=== PATIENT | female | born 1985 | race African-American/Black ===

== ENCOUNTER 2016-09-30 21:29 | Emergency (ER) | payer MEDICAID ==
[~2016-09-30] VITALS: Ht 177.8 cm; Wt 98.0 kg
[2016-09-30 21:43] VITALS: BP 132/92
[2016-10-01] MEDS ORDERED: BACITRACIN ZINC OINT UDPKT TOP ONE (02:15)
== END 2016-10-01 02:55 | disposition home or self-care (01) ==
LOC: ER 21:29
DX: L60.0 Ingrowing nail (principal); L02.31 Cutaneous abscess of buttock; L03.317 Cellulitis of buttock; Z88.0 Allergy status to penicillin; Z91.011 Allergy to milk products
CPT/HCPCS: 81025; 99283

== ENCOUNTER 2017-01-26 22:39 | Emergency (ER) | payer MEDICAID, OTHER ==
[~2017-01-26] VITALS: Ht 180.3 cm; Wt 126.0 kg
[2017-01-26] MEDS ORDERED: SODIUM CHLORIDE 0.9% 1,000 ML IV ONE (23:45)
[2017-01-26 23:54] VITALS: BP 109/55
[2017-01-27 00:05] LABS: BASOPHILS % 0.7 % (0.0-2.0); EOSINOPHILS % 1.7 % (0.0-5.0); HEMATOCRIT. 38.4 % (36.0-48.0); HEMOGLOBIN. 12.8 g/dL (12.0-16.0); LYMPHOCYTES % 33.9 % (20.0-50.0); MEAN CORPUSCULAR HEMOGLOBIN 24.2 pg (28.0-32.0); MEAN CORPUSCULAR VOLUME 72.8 fL (81.0-99.0); MEAN PLATELET VOLUME 8.1 fl (7.4-10.4); MONOCYTES % 9.4 % (2.0-8.0); NEUTROPHILS % 54.3 % (40.0-76.0); PLATELET 228 x1000/uL (130-400); RED BLOOD CELL COUNT 5.27 mill/uL (4.2-5.4); RED CELL DISTRIBUTION WIDTH 14.1 % (11.6-14.6)
[2017-01-27 00:11] LABS: CHLORIDE 104 mEq/L (98-107)
[2017-01-27 00:17] LABS: CLARITY URINE CLOUDY (CLEAR); COLOR URINE YELLOW (YELLOW); GLUCOSE URINE NEGATIVE (NEGATIVE); KETONES URINE TRACE (NEGATIVE); LEUKOCYTE ESTERASE URINE 1+ (NEGATIVE); NITRITE URINE NEGATIVE (NEGATIVE); OCCULT BLOOD URINE 1+ (NEGATIVE); PH URINE 5.5 (4.5-8.0); PROTEIN URINE NEGATIVE (NEGATIVE); SPECIFIC GRAVITY URINE 1.034 (1.005-1.030)
[2017-01-27 00:27] LABS: CARBON DIOXIDE 23 mEq/L (21-32)
[2017-01-27 00:35] LABS: B-HCG QUANTITATIVE 136340 mIU/mL (<3)
== END 2017-01-27 01:15 | disposition home or self-care (01) ==
LOC: ER 22:39
DX: O20.0 Threatened abortion (principal); O21.0 Mild hyperemesis gravidarum; Z3A.09 9 weeks gestation of pregnancy; O99.511 Diseases of the respiratory system complicating pregnancy, first trimester; J45.909 Unspecified asthma, uncomplicated; Z88.0 Allergy status to penicillin; Z91.011 Allergy to milk products
CPT/HCPCS: 36415; 76801; 80053; 81001; 81025; 84702; 85025; 86850; 86900; 86901; 99285; J7030; J7040; Z7610

== ENCOUNTER 2017-03-29 05:41 | Emergency (ER) | payer OTHER ==
[~2017-03-29] VITALS: Ht 177.8 cm; Wt 123.0 kg
[2017-03-29] MEDS ORDERED: ONDANSETRON HCL 4MG/2ML VIAL IV STA (07:35)
[2017-03-29 08:10] LABS: HEMOGLOBIN. 12.6 g/dL (12.0-16.0); MEAN CORPUSCULAR HEMOGLOBIN 23.1 pg (28.0-32.0); MEAN CORPUSCULAR VOLUME 73.6 fL (81.0-99.0); MEAN PLATELET VOLUME 8.4 fl (7.4-10.4); PLATELET 241 x1000/uL (130-400); RED BLOOD CELL COUNT 5.43 mill/uL (4.2-5.4); RED CELL DISTRIBUTION WIDTH 14.7 % (11.6-14.6)
[2017-03-29 08:20] LABS: CARBON DIOXIDE 22 mEq/L (21-32); CHLORIDE 105 mEq/L (98-107)
[2017-03-29] MEDS ORDERED: SODIUM CHLORIDE 0.9% 1,000 ML IV ONE ×2 (09:15→10:30)
[2017-03-29 09:42] LABS: PLATELET ESTIMATE NORMAL
[2017-03-29 10:00] LABS: CLARITY URINE CLOUDY (CLEAR); COLOR URINE DARK YELLOW (YELLOW); KETONES URINE 3+ (NEGATIVE); LEUKOCYTE ESTERASE URINE 3+ (NEGATIVE); NITRITE URINE NEGATIVE (NEGATIVE); OCCULT BLOOD URINE NEGATIVE (NEGATIVE); PROTEIN URINE 1+ (NEGATIVE); SPECIFIC GRAVITY URINE 1.036 (1.005-1.030)
[2017-03-29 10:17] LABS: *AMPHETAMINES SCREEN URINE NEGATIVE (NEGATIVE); *BARBITURATES SCREEN URINE NEGATIVE (NEGATIVE); *BENZODIAZEPINES SCREEN URINE NEGATIVE (NEGATIVE); *COCAINE SCREEN URINE NEGATIVE (NEGATIVE); CANNABINOID URINE SCREEN NEGATIVE (NEGATIVE); METHADONE URINE SCREEN NEGATIVE (NEGATIVE); OPIATES URINE SCREEN NEGATIVE (NEGATIVE); PHENCYCLIDINE URINE SCREEN NEGATIVE (NEGATIVE)
[2017-03-29] MEDS ORDERED: ACETAMINOPHEN 325MG TABLET PO ONE (12:00)
[2017-03-29 12:24] VITALS: BP 125/72
== END 2017-03-29 12:25 | disposition home or self-care (01) ==
LOC: ER 06:10
DX: O9A.212 Injury, poisoning and certain other consequences of external causes complicating pregnancy, second trimester (principal); T62.8X1A Toxic effect of other specified noxious substances eaten as food, accidental (unintentional), initial encounter; O26.892 Other specified pregnancy related conditions, second trimester; R73.9 Hyperglycemia, unspecified; O99.512 Diseases of the respiratory system complicating pregnancy, second trimester; J45.909 Unspecified asthma, uncomplicated; Z3A.18 18 weeks gestation of pregnancy; Z87.891 Personal history of nicotine dependence; Z88.0 Allergy status to penicillin; Y92.89 Other specified places as the place of occurrence of the external cause; Z98.890 Other specified postprocedural states; Z91.011 Allergy to milk products
CPT/HCPCS: 36415; 76705; 76805; 80053; 80305; 81001; 83690; 85025; 96361; 96374; 99285; J2405; J7030; Z7610